=== PATIENT | male | born 1940 | race Caucasian/White ===

== ENCOUNTER 2018-07-04 16:31 | Observation (INO) | payer OTHER ==
--- NOTE | 2018-07-04 16:37 | ED Physician Documentation ---
General Adult - HISTORIAN Historian: patient, spouse - HPI Stated Complaint: chest pain Chief Complaint: General Adult Onset: hours (2) Timing: still present Severity: moderate Further Comments: yes (Pt is a 78 yo male with c/o chest pain. 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 Pain radiates to L shoulder. Pt describes pain as intermittent and stabbing, rather than sustained. Pt appeared sob, walking into ER. He says he is almost always like that and does not move around much and has been indoors in the winter. Pt could not say for sure if his sob has been getting worse lately, but his says it has. No n/v. Pt has hx atrial fibrillation, HTN, HLD.) - ROS CONST: weakness EYES/ENT: none CVS/RESP: chest pain, shortness of breath GI/: none MS/SKIN/LYMPH: none - PAST HX Past History: A-Fib, hypertension, other (HLD, BPH) Surgeries/Procedures: other (ankle fusion) Allergies/Adverse Reactions: Allergies Allergy/AdvReac Type Severity Reaction Status Date / Time No Known Allergies Allergy Verified 07/04/18 16:43 Home Medications: Ambulatory Orders Medication Instructions Recorded Finasteride 5 mg PO DAILY 08/21/14 Losartan/Hydrochlorothiazide 1 tab PO DAILY 08/21/14 [Losartan-Hctz 100-12.5 mg Tab] Lovastatin 20 mg PO DAILY 08/21/14 Warfarin Sodium 1 tab PO DAILY 07/04/18 - SOCIAL HX Smoking History: non-smoker - FAMILY HX Family History: No - VITAL SIGNS Vital Signs: Vital Signs Temp Pulse Resp BP Pulse Ox 132/68 08/21/14 16:15 - REVIEWED ASSESSMENTS Nursing Assessment Reviewed: Yes Vitals Reviewed: Yes Progress - Progress Progress: Pt's BP improved w/o tx shortly after arrival in ER. 182/104 --> 135/88 Admit to obs, ER physician. General Adult Physical Exam - PHYSICAL EXAM GENERAL APPEARANCE: moderate distress (anxious) EENT: pharynx normal NECK: normal inspection, supple RESPIRATORY: chest non-tender, breath sounds normal, other (mild tachypnea) CVS: irregularly irregular rhy ABDOMEN: soft, no organomegaly, normal bowel sounds BACK: normal inspection, no CVA tenderness SKIN: warm/dry, normal color EXTREMITIES: non-tender, normal range of motion, no evidence of injury NEURO: oriented X3, motor nml, sensation nml Discharge Clincal Impression: chest pain Referrals: Lucas Ambrose MD [Primary Care Provider] - Condition: Stable Disposition: ADMITTED INPATIENT Decision to Admit: [id number] Decision Time: 17:00
[2018-07-04 16:58] LABS: MEAN CORPUSCULAR HEMOGLOBIN 29.3 pg (28.0-34.0)
[2018-07-04 16:59] LABS: BASOPHILS % 1.4 (0.0-1.5); NEUTROPHILS # 4.4 # k/uL (1.4-7.7)
[2018-07-04 17:12] LABS: eGFR (Non-African) 55
[2018-07-04] MEDS ORDERED: WARFARIN SODIUM 1 MG TABLET PO SCH (19:06)
[2018-07-04 20:33] LABS: APPEARANCE,URINE CLEAR (CLEAR); COLOR,URINE YELLOW (YELLOW); OCCULT BLOOD,URINE TRACE (NEGATIVE); UROBILINOGEN URINE 0.2 Eu (0.2-1.0)
[2018-07-04] MEDS ORDERED: SIMVASTATIN 20 MG TABLET ONE (20:36)
[2018-07-04] MEDS ORDERED: WARFARIN SODIUM 1 MG TABLET PO ONE (20:36)
[2018-07-04] MEDS ORDERED: SALINE FLUSH 10 ML DISP.SYRIN IV SCH (21:00)
[2018-07-04] MEDS ORDERED: SIMVASTATIN 20 MG TABLET PO SCH (21:00)
[2018-07-04 21:48] VITALS: BMI 68.0
--- NOTE | 2018-07-05 01:21 | Diagnostic Imaging Report ---
BARRY GILMORE [facility] [id number] [facility] [address] [place] [phone] [id number] Report Submission Date: Jul 04, 2018 5:09:18 PM [employer] Patient Study Name: MERNA REYES Date: Jul 04, 2018 4:48:04 PM [employer] Modality Type: DX Gender: M Description: CHEST 1VIEW : 38 Institution: [facility] Physician: BARRY ALCANTAR Ap portable upright radiographs of the chest Clinical history: Chest pain Technique: anterior /posterior portable upright The lung pressley are clear. The heart is upper limits of normal. The aorta is tortuous and calcified. The bony thorax is unremarkable. No pneumothorax or pleural effusion is seen. Impression: No acute pulmonary disease Electronically signed on Jul 04, 2018 5:09:18 PM [employer] by: Prashant SANDOVAL
[2018-07-05] MEDS ORDERED: HYDROCHLOROTHIAZIDE 25 MG TABLET PO ONE (05:46)
[2018-07-05] MEDS ORDERED: HYDROCHLOROTHIAZIDE 25 MG TABLET PO SCH (07:00)
[2018-07-05 08:12] VITALS: BP 130/84
[2018-07-05] MEDS ORDERED: LOSARTAN POTASSIUM 50 MG TABLET PO SCH (09:00)
[2018-07-05] MEDS ORDERED: FINASTERIDE 5 MG TABLET PO SCH (09:00)
--- NOTE | 2018-07-05 09:04 | Discharge Summary ---
Discharge Summary - Discharge Sumary History of Present Illness: stable chest pain - resolved DG Condition at Discharge: Stable Home Medications: Ambulatory Orders Medication Instructions Recorded Finasteride 5 mg PO DAILY 08/21/14 Losartan/Hydrochlorothiazide 1 tab PO DAILY 08/21/14 [Losartan-Hctz 100-12.5 mg Tab] Lovastatin 20 mg PO DAILY 08/21/14 Warfarin Sodium 1 tab PO DAILY 07/04/18 Consultations this Visit: None Procedures this Visit: None Allergies/Adverse Reactions: Allergies Allergy/AdvReac Type Severity Reaction Status Date / Time No Known Allergies Allergy Verified 07/04/18 16:43 Patient Problems: Current Active Problems Problem Status Onset Chest pain Acute Discharge Summary: resolved chest pain Hospital Course: chest pain - resolved
== END 2018-07-05 09:25 | disposition home or self-care (01) ==
LOC: ED 16:31 → SOUTH 19:36
PROVIDERS: ADMIT Emergency Medicine; ATTEND Nurse Practitioner Family
DX: R07.89 Other chest pain (principal); R06.00 Dyspnea, unspecified; I10 Essential (primary) hypertension; I48.91 Unspecified atrial fibrillation
CPT/HCPCS: 36415; 71045; 80053; 81002; 82550; 82553; 83880; 84484; 85025; 85379; 85610; 93005; 99283; G0378; 99217; S1016